=== PATIENT | female | born 1960 | race Two or more races ===

== ENCOUNTER 2024-03-07 05:51 | Inpatient (IN) | payer OTHER, SELFPAY ==
[2024-02-20 06:58] VITALS: BMI 41.4
[2024-02-20 09:00] LABS: Hematocrit 39.2 % (37.0-47.0); Hemoglobin 13.3 g/dL (12.0-16.0); Mean Corp Hgb Conc. 33.9 g/dL (33.0-37.0); Mean Corpuscular Hgb 29.1 pg (27.0-31.0); Mean Corpuscular Volume 85.8 fL (81.0-99.0); Mean Platelet Volume 11.1 fL (7.4-10.4); Platelet Count 222 10^3/uL (130-400); Red Blood Cell Count 4.57 10^6/uL (4.20-5.40); Red Cell Dist. Width 13.3 % (11.5-14.5); White Blood Cell Count 8.3 10^3/uL (4.8-10.8)
[2024-02-20 09:05] LABS: INR 0.96; PT 12.8 Sec (11.4-14.6)
[2024-02-20 09:06] LABS: APTT 32.4 Sec (23.4-35.0)
[2024-02-20 09:36] LABS: Glycohemoglobin (HgbA1c) 5.6 % (4.0-5.6)
[2024-02-20 10:56] LABS: ALT (SGPT) 29 U/L (0-35); AST (SGOT) 26 U/L (14-36); Alkaline Phosphatase 78 U/L (38-126); Blood Urea Nitrogen 17 mg/dl (7-17); Calcium 9.1 mg/dl (8.4-10.2); Carbon Dioxide 27 mmol/L (22-30); Chloride 104 mmol/L (98-107); Estimated Creatinine Clearance 83 ml/min; Glucose 88 mg/dl (70-99); Potassium 4.3 mmol/L (3.5-5.1); Sodium 140 mmol/L (135-145); Total Bilirubin 0.4 mg/dl (0.2-1.3); Total Protein 7.1 g/dl (6.3-8.2); eGFR > 60.00
[2024-03-07] VITALS (13 sets, daily range): BP systolic 105–139; BP diastolic 51–84; BMI 41.4
[2024-03-07] MEDS: ENTEREG 12 MG PO (06:43)
[2024-03-07] MEDS: CELEBREX 200 MG PO (06:43)
[2024-03-07] MEDS: TYLENOL 1000 MG PO ×2 (06:44→23:08)
[2024-03-07] MEDS: NORMOSOL-R 1000 IV ×2 (06:44→15:49)
[2024-03-07] MEDS: LYRICA 150 MG PO (06:44)
[2024-03-07] MEDS: HEPARIN 5000 UNITS SC (06:44)
[2024-03-07] MEDS: TRANSDERM-SCOP 1 PATCH TRANSDERM (07:03)
--- NOTE | 2024-03-07 14:10 | W.IMMPOSTOP ---
Addendum entered and electronically signed by Michael Salmeron MD 03/07/24 14:40:
Update patient's daughter over the phone
Original Note:
Surgical Immed Post Op Note
-
Primary Surgeon: Michael Salmeron MD
Assisting Surgeon: CATHY Dawkins
Pre-op Diagnosis: recurrent diverticulitis
Post-op Diagnosis: recurrent diverticulitis
Procedure Performed: robotic sigmoidectomy, lysis of adhesions (>1.5hrs), mesenteric angiography, take-down of splenic flexure, flex sig, repair of small bowel injury; TAP block performed at beginning of case by anesthesia
Anesthesia Type: general
Specimen / Cultures: sigmoid
Estimated Blood Loss: 200mL
IVF: 2.8L crystalloid
UOP: 850mL
Complications: bowel injury about 8cm from ileocecal valve, repaired primarily
Operative Findings: Abdominal access via Veress; placed for ports with an assist port and created Pfannenstiel incision with the small Arnold and port cap; omental adhesions to the umbilicus taken down sharply; sigmoid was inflamed chronically and
had adhesions to the LLQ, left pelvic brim, left ovary and fallopian tube and uterus, all taken down with a combination of blunt and sharp dissection; initiated medial to lateral dissection and obtained access to the presacral plane; however,
mesentery was very thick with adiposity and therefore continued with lateral to medial; left ureter was identified and protected; while attempting to take a couple of adhesions from the terminal ileum down from the right pelvic brim, a burn injury
was created on the terminal ileum, about 8 cm proximal from the IC valve; the injury was about 1 cm x 1 cm in size; repaired this primarily with 4 interrupted Lembert sutures to imbricate the area in a transverse orientation; there was some bleeding
from a branch of the CHANDA that was controlled with a 3-0 vicryl stitch in figure-of-8 fashion; upsized to the RLQ port and ligated the CHANDA with a white load stapler due to the thickness of the pedicle; then continued to mobilize the descending colon
up to the level of the splenic flexure medially and laterally; then mobilized the proximal rectum and passed sizers to identify the transection point; cleaned up the mesentery posteriorly and stapled the proximal rectum at about 13 cm from the anal
verge using a green load stapler; evaluated the proximal colon and selected a location on healthy colon at the distal descending; divided the mesentery up to this point; concerns at this point was well-perfused using ICG; placed the anvil in usual
fashion; checked reach which was not sufficient; therefore mobilized the splenic flexure to the very distal transverse colon; reach was adequate and performed an EEA stapled anastomosis; hemostasis was checked and assured; the left ureter was also
safe and uninjured; there was no bleeding from the CHANDA stump; the donuts were intact x 2, leak test negative and flex sig confirmed anastomosis without issue; closed the RLQ port site with a Remington Dominguez and 0 Vicryl; closed the Pfannenstiel and
skin incisions the usual fashion
--- NOTE | 2024-03-07 14:41 | OR.RPT ---
Operative Report
Operative Report
DATE OF OPERATION: 03/07/2024
SURGEON: Michael Salmeron MD
PREOPERATIVE DIAGNOSIS: Recurrent diverticulitis
POSTOPERATIVE DIAGNOSIS: Recurrent diverticulitis
OPERATION: Robotic sigmoidectomy, adhesiolysis greater than 1.5 hr, repair of small bowel injury, mesenteric angiography with ICG, take-down of the splenic flexure, flexible sigmoidoscopy; TAP block performed by anesthesia at beginning of case
ASSISTANTS:
1. CATHY Dawkins
ANESTHESIA: General
ESTIMATED BLOOD LOSS: 200 mL
IVF: 2.8 L
URINE OUTPUT: 850 mL
FINDINGS:
1. Multiple intra-abdominal adhesions: from the omentum to the umbilicus; from the sigmoid to the LLQ, left pelvic brim, left ovary and uterus; from the terminal ileum to the right pelvic brim; all taken down with a combination of sharp and blunt
dissection
2. Chronically inflamed and edematous sigmoid colon
3. During adhesiolysis of the terminal ileum, there was a burn injury to the bowel about 8 cm proximal to the ileocecal valve, 1 cm x 1 cm in size; imbricated the area with four 3-0 Vicryl's in a Lembert fashion oriented transversely
4. Performed distal descending to proximal rectum intracorporeal stapled EEA anastomosis; donuts intact x 2, leak test negative, anastomosis intact on flexible sigmoidoscopy
SPECIMENS:
1. Sigmoid colon
DRAINS: None
COMPLICATIONS: Small bowel injury repaired primarily
INDICATIONS: The patient is a 63-year-old female who has had recurrent diverticulitis since 2018. Over the last year, she has been having a recurrent episode about once every 2 to 3 months. Therefore, I recommended surgery. The operation was
discussed with the patient in detail, including the risks, benefits and alternatives. Risks described included, but not limited to, bleeding, infection, anastomotic leak, damage to nearby structures (i.e.- ureter, bowel, solid organs), incisional
hernia, need for ostomy creation, conversion to open, recurrent diverticulitis and anesthetic risks. The patient understood and agreed to proceed.
PROCEDURE IN DETAIL: The patient was taken to the operating room and placed on the operating table in supine position. Sequential compression devices were placed bilaterally. General anesthesia was then induced and the patient was intubated without
complication. The patient was then placed in lithotomy position with both arms tucked. Joaquin catheter was placed with sterile technique. The abdomen was then shaved, prepped and draped in a sterile fashion. A time-out was then performed verifying
the correct patient, procedure, operative site, positioning, and special equipment. Preoperative antibiotics were given. A marking pen was used to tram out the midline.
An 8 mm incision at Richardson's point was made with an 11 blade scalpel. A Veress needle was used to gain abdominal access. After 3 clicks, the insufflation was connected to the Veress needle and the opening pressure was noted to be less than 8 mmHg.
The abdomen was then insufflated to a pressure of 12 mmHg. An 8 mm robotic trocar was then inserted. The robotic camera was advanced and intra-abdominal placement was confirmed. The abdomen was examined. No injuries were noted from port entry or
from the Veress needle. The omentum was adherent to the periumbilical region. The sigmoid was unable to be visualized at this point due to the intervening small bowel. The remaining three 8mm robotic ports were placed under direct visualization
in a diagonal fashion from Richardson's point to the right lower quadrant, as well as an 8mm assist port in the right lateral mid abdomen, taking care to avoid injury to the right epigastric vessels. The left upper quadrant port was changed to the air
seal port.
A 6 cm Pfannenstiel incision was created 2 fingerbreadths above the pubic symphysis. This was carried down to the anterior fascia with electrocautery and hemostasis was assured. The fascia was then incised to just beyond the length of the skin
incision. The fascia was grasped with Casper's and elevated. The adhesions to the anterior fascia were taken down bluntly from the rectus abdominis muscle and the midline attachment was taken down with electrocautery. This was performed both
superiorly and inferiorly to our incision. The rectus was then split along the midline, first scoring the linea alba with electrocautery, then bluntly spitting with a Sandee clamp to reveal the peritoneum, which was grasped and elevated with Kellys.
The peritoneum was then incised with Metzenbaum scissors, taking care to avoid injury to intraperitoneal structures. The peritoneum was then incised cranially and caudally to the greatest extent that our incision would allow, taking care to avoid
injury to the bladder. A small Arnold with port cap was placed and a robotic 12 mm port was placed through the port cap. Then, the patient was placed in 24 degrees trendelenburg and 10 degrees [id number]. The robot was docked from the
patient's right side. From the RLQ to Richardson's point, the instruments introduced were the scissors, camera, bipolar grasper and tip-up grasper, respectively.
I began by taking down the adhesions to the periumbilical region. I retracted the omentum inferiorly and meticulously divided the adhesions to the abdominal wall with sharp and blunt dissection. Once the omentum was down, I checked for hemostasis
which was confirmed. I then swept the omentum over the transverse colon. The small bowel was retracted out of the pelvis and towards the right upper quadrant. The sigmoid colon was thickened surrounded by chronically inflamed epiploica. Numerous
adhesions were noted from the sigmoid colon to the left pelvic sidewall, the left ovary and the uterus, which were taken down with sharp and blunt dissection. The sigmoid was then grasped and elevated to commence a medial to lateral dissection.
However, due to the adiposity in the retroperitoneum and mesocolon, the correct plane was difficult to identify. There was significant adiposity heaped up around the sacral promontory and likely CHANDA pedicle. The peritoneum overlying the sacral
promontory was scored and entered. I was able to enter the presacral space, but taking this towards the CHANDA pedicle was difficult as the tissue was friable with significant oozing. The small bowel was also hindering visualization. Therefore, I
placed the patient in 28 degrees Trendelenburg and 14 degrees [id number]. There was 1 attachment from the terminal ileum to the right pelvic brim which I took down with the vessel sealer. There was some bleeding noted from a small portion of
the mesentery adjacent to the terminal ileum. This was controlled with electrocautery. However, while attempting to control this, the bowel was burned with electrocautery from the bipolar grasper. The duration of the burn was about 1 to 2
seconds. On evaluation of the burn, it was about 1 cm x 1 cm in size and located about 8 cm proximal to the ileocecal valve. It was superficial, however, there was clear evidence of an injury due to the white color of the tram. I discussed with
my senior officer, Dr. Sarkar, and we both agreed that a primary repair would be sufficient in this situation versus a formal ileocecectomy. Therefore, I imbricated the injury using four 3-0 Vicryl's thrown in a Lembert fashion and oriented
transversely along the bowel. The injury was completely imbricated and the surrounding bowel remained healthy without evidence of ischemia.
I returned my attention back to the dissection of the CHANDA pedicle. Due to the difficulty completing a medial to lateral mobilization, I switched to a lateral to medial approach. I freed the sigmoid mesentery from the left pelvic brim and easily
identified the left ureter, which was kept safe from my dissection. I was able to connect to my previous dissection posterior to the rectosigmoid. I then continued a lateral to medial mobilization up to the level of the distal descending colon. I
changed back to a medial to lateral approach to further dissect out the CHANDA pedicle. Some arterial bleeding was noted from a branch of the CHANDA pedicle and this was controlled with a 3-0 Vicryl stitch in a [id number] fashion. I successfully
mobilized the CHANDA pedicle circumferentially. I upsized the RLQ port to a 12 mm. Due to the thickness of the CHANDA pedicle, I divided it about 2-3 cm from its takeoff using the white load of the 60 mm stapler. The CHANDA stump was hemostatic. I
mobilized more of the mesocolon off the retroperitoneum from a medial to lateral approach up to the proximal descending colon and took down the lateral attachments.
I turned back to the pelvis and continued the dissection inferiorly, posteriorly to the rectum in the presacral plane, and took this to just beyond the sacral promontory. I used the vessel sealer to connect the posterior dissection to the right
lateral dissection in order to further mobilize the rectosigmoid junction. I retracted the rectosigmoid junction to the patient's right, and then scored the left lateral peritoneum and used the vessel sealer to divide the lateral stalk to the same
point as my right lateral dissection. Once the rectosigmoid seemed adequately mobilized, I went below and performed a flexible sigmoidoscopy to confirm the transection point. The rectum was clear of stool and I advanced the sigmoidoscope to the
rectosigmoid junction, confirmed visually with the robotic endoscope. I then selected a point about 2 to 3 cm distal to the rectosigmoid. I passed EEA sizers up in increasing size to confirm adequate diameter of the rectum. The largest sizer
passed easily. I went back to the robotic console. I retracted the rectosigmoid anteriorly again, and then created a tunnel through the mesorectum at my proposed transection point on the rectum. I then divided the mesorectum with the
vessel-sealer. I stapled across the proximal rectum with a 60 mm green load stapler, taking care to avoid injury to the surrounding structures, including the left ureter. The staple line was hemostatic.
For my proximal transection point, I assessed the sigmoid and distal descending colon. There was inflammation and thickening of the colon wall up to the level of the proximal sigmoid colon. I selected a point just proximal to this area on healthy
colon. I elevated the colon at this point with my tip up grasper. I fanned out the mesentery from the divided CHANDA stump. I ligated the mesentery from this spot to my transection point on the the distal descending colon. I elected to proceed with an
intracorporeal end-to-end stapled anastomosis with EEA stapler. Anesthesia injected ICG and my proposed proximal transection point was well-vascularized. A colotomy in the devascularized segment of colon was created using the robotic scissors at a
point distal to our proposed proximal transection point. The anvil with a long Prolene suture attached at the tip was then carefully passed through the colotomy and advanced proximally up the descending colon, with the long Prolene remaining
outside of the colon. The colotomy was then closed around the Prolene stitch using a V-Loc running stitch. The robotic stapler with a blue load was then used to staple and divide the descending colon at our proposed transection point. The
specimen was then placed in the left upper quadrant. The Prolene attached to the anvil was grasped and pulled through the staple line after removing a few pily. I grasped and elevated the anvil and it was seated along the staple line nicely
without intervening diverticula or mesentery.
I checked the reach of the proposed anastomosis once more and it was inadequate by 3 to 4 cm. Therefore, I elected to mobilize the splenic flexure to the distal transverse colon. I grasped the left colon and retracted this towards the RUQ. Using
the vessel sealer, I divided the omental attachments to the left colon and splenic flexure. I then took down the ligaments from the colon to the spleen. Once the splenic flexure was mobilized to the distal transverse colon, I checked my reach
again and it was adequate. The entire operative field was surveyed and hemostasis was ensured. Then, sizers were passed up the rectum to ensure adequate circumference and length. The EEA stapler was passed transanally to the distal staple line.
The pin was extended and was connected with the anvil. After ensuring there was no twist to the mesentery and there was no tension, the EEA stapler was then closed for 1 minute and then fired. Both donuts were intact. A leak test was performed by
filling the pelvis with saline, occluding the proximal lumen and insufflating with the flexible sigmoidoscope. There was no evidence of leak from the anastomosis. Endoscopically, the anastomosis was intact without evidence of bleeding. The
colorectum was desufflated and the flexible sigmoidoscope removed.
The robotic instruments were removed and the robot was undocked. The right lower quadrant 12mm port was closed with a Remington-Dominguez and an 0-vicryl. The remaining ports were removed under direct visualization and no bleeding was noted. The
Pfannenstiel incision was then closed in layers. First, the peritoneum was closed with a running 0-Vicryl stitch. Then, the anterior fascia was closed using a #1 Stratafix suture. The incisions were then irrigated. 30 cc of 0.25% Marcaine with
epinephrine mixed with dexamethasone were injected around the incisions. The incisions were then closed with running subcuticular 4-0 Monocryl and dressed with Dermabond.
At this point, the procedure was complete. The patient was awoken and extubated without complication. All needle, sponge and instrument counts were reported as correct. The patient tolerated the procedure well and was transferred to the recovery
room in stable condition with the Joaquin in place.
DICTATED BY: Michael Salmeron MD
[2024-03-07] MEDS: TORADOL 15 MG IV ×2 (15:51→21:30)
--- NOTE | 2024-03-07 17:11 | PTCARENOTE ---
Patient admitted from [facility] post robotic sigmoid resection secondary to diverticulitis.The patient is alert but drowsy.She said she has pain only when she moves at a 4 out of 10.All 6 laparoscopic sites are open to air without drainage.The patient is
in her bed with the call shine in reach.
[2024-03-07] MEDS: TYLENOL PO (18:02)
[2024-03-08] MEDS: TORADOL 15 MG IV ×4 (03:08→21:29)
[2024-03-08] MEDS: NORMOSOL-R 1000 IV (03:14)
[2024-03-08 03:45] VITALS: BP 111/65
[2024-03-08 05:23] VITALS: BMI 41.2
[2024-03-08] MEDS: TYLENOL PO ×2 (05:32→23:46)
[2024-03-08 07:40] VITALS: BP 108/64
[2024-03-08] MEDS: SPIRIVA RESPIMAT 2.5 MCG 2 PUFF INH (07:48)
[2024-03-08] MEDS: SYMBICORT 80/4.5 MCG INHALER 2 PUFF INH ×2 (07:48→18:34)
[2024-03-08 07:50] LABS: % Basophils 0.2 % (0-2); % Eosinophils 0.2 % (0-6); % Immature Granulocytes 0.4 % (0-0.5); % Lymphocytes 12.5 % (20.5-51.1); % Neutrophils 79.7 % (42.2-75.2); Absolute Immature Granulocytes 0.1 10^3/uL (0-0.05); Absolute Lymphocytes 1.7 10^3/uL (1.2-3.4); Hematocrit 31.7 % (37.0-47.0); Hemoglobin 11.1 g/dL (12.0-16.0); Mean Corpuscular Volume 82.8 fL (81.0-99.0); Nucleated Red Blood Cells % 0.3 %; Red Blood Cell Count 3.83 10^6/uL (4.20-5.40); Red Cell Dist. Width 13.4 % (11.5-14.5); White Blood Cell Count 13.8 10^3/uL (4.8-10.8)
[2024-03-08 08:08] LABS: Blood Urea Nitrogen 10 mg/dl (7-17); Calcium 8.2 mg/dl (8.4-10.2); Carbon Dioxide 22 mmol/L (22-30); Chloride 109 mmol/L (98-107); Estimated Creatinine Clearance 106 ml/min; Glucose 112 mg/dl (70-99); Magnesium 2.8 mg/dl (1.6-2.3); Potassium 4.5 mmol/L (3.5-5.1); Sodium 139 mmol/L (135-145); eGFR > 60.00
[2024-03-08] MEDS: ENTEREG 12 MG PO ×2 (08:23→19:51)
[2024-03-08] MEDS: PROTONIX 40 MG PO (08:23)
[2024-03-08 09:26] LABS: Mean Platelet Volume 11.5 fL (7.4-10.4); Platelet Count 173 10^3/uL (130-400)
--- NOTE | 2024-03-08 10:45 | W.PN.CRS1 ---
Today's Communication / Plan
-
Regular diet, go slow
DC Joaquin
Repeat CBC at 4 PM
Ambulate twice daily and OOBTC
Assessment/Plan
-
63-year-old female with PMH of recurrent diverticulitis, asthma, constipation, HTN, GERD, HLD who presented for elective surgery
POD 1 robotic sigmoidectomy, MAVIS, small bowel injury repair primarily, tap block
WBC 13.8, Hb 11.1 from 13.3, CR 0.7
� Okay to advance to regular diet, instructed patient to go slow
� Continue pain control with Tylenol, Toradol, lidocaine patch, Dilaudid as needed; continue Entereg
� Anemia likely due to dilutional and intraoperative blood loss
-hold Lovenox, repeat CBC in afternoon
�If Hb stable, okay to start Lovenox
� DC Joaquin, monitor for void
� Ambulate twice daily and OOBTC, encourage IS
�Continue home medications
Subjective Data
Subjective Data
Date of Service: March 08, 2024
No overnight events.
Pain controlled.
Denies nausea/vomiting. Tolerating clears.
-flatus -BMs + Joaquin
Pt is not OOB yet.
Objective Data
-
Vital Signs
Temp Pulse Resp BP Pulse Ox
98.6 F 87 15 108/64 97
03/08/24 07:40 03/08/24 07:54 03/08/24 07:54 03/08/24 07:40 03/08/24 07:54
Intake & Output
03/07/24 03/08/24 03/09/24
06:59 06:59 06:59
Intake Total 1880 / 1880
Output Total 2250 / 2250
Balance -370 / -370
Intake:
Oral fluids 480 / 480
IV fluids (Total) 1400 / 1400
Normosol 200 / 200
IV piggybacks 0 / 0
Output:
Urine, Joaquin 2250 / 2250
Lab Results
03/08/24 07:17
03/08/24 07:17
Physical Exam
-
General: No Acute Distress and AOx3
HEENT: Grossly Normal
Abdomen: Soft, Non Distended (Protuberant but not tympanitic), Non Tender, No Guarding and No Rebound
Skin: Warm and Dry
Incision: Clear, Dry, Intact, No Skin Erythema and Other (No drainage)
[2024-03-08] MEDS: TYLENOL 1000 MG PO ×2 (11:17→17:01)
[2024-03-08 11:20] VITALS: BP 119/52
--- NOTE | 2024-03-08 12:32 | CM ---
Initial assessment completed with patient with sister and B-I-L in room. Patient lives alone in a 2nd floor condo with loft, 4 steps into the building and 12 steps to the 2nd floor condo. Daughter lives on 1st floor, DME is [facility], no in-home
services, [employer] was independent, drove and worked, no psychiatric hospitalizations. Pharmacy is [facility] in [place] and PCP is Dr. Rosalva Cui. Anticipate home with no needs.
--- NOTE | 2024-03-08 13:24 | PTCARENOTE ---
1320: Patient informed RN that she missed urinating in the hat that was placed in the toilet to measure how much she was urinating post wan removal today and patient flushed the toilet prior to any of the staff members being able to see the amount
of urine. Patient stated that 'it was a moderate amount of urine'. This RN informed Jennifer LEES. No new orders at this time. Care ongoing.
[2024-03-08 14:55] VITALS: BP 120/55; PULSE 83; O2SAT 98
[2024-03-08 15:17] LABS: Hematocrit 29.3 % (37.0-47.0); Hemoglobin 10.1 g/dL (12.0-16.0); Mean Corp Hgb Conc. 34.5 g/dL (33.0-37.0); Mean Corpuscular Volume 86.9 fL (81.0-99.0); Mean Platelet Volume 10.5 fL (7.4-10.4); Platelet Count 205 10^3/uL (130-400); Red Blood Cell Count 3.37 10^6/uL (4.20-5.40); Red Cell Dist. Width 13.3 % (11.5-14.5); White Blood Cell Count 13.4 10^3/uL (4.8-10.8)
[2024-03-08 15:25] VITALS: BP 115/67
[2024-03-08 23:14] VITALS: BP 110/64
[2024-03-09] MEDS: TORADOL 15 MG IV (02:55)
[2024-03-09 06:00] VITALS: BMI 41.8
[2024-03-09] MEDS: TYLENOL PO (06:22)
[2024-03-09 07:00] VITALS: BP 108/57
[2024-03-09] MEDS: SPIRIVA RESPIMAT 2.5 MCG 2 PUFF INH (07:26)
[2024-03-09] MEDS: SYMBICORT 80/4.5 MCG INHALER 2 PUFF INH (07:26)
[2024-03-09] MEDS: PROTONIX 40 MG PO (08:20)
[2024-03-09] MEDS: ENTEREG PO (08:21)
[2024-03-09] MEDS: TYLENOL 1000 MG PO (08:24)
[2024-03-09] MEDS: TORADOL IV (08:24)
[2024-03-09 08:40] LABS: Hematocrit 31.1 % (37.0-47.0); Hemoglobin 10.1 g/dL (12.0-16.0); Mean Corp Hgb Conc. 32.5 g/dL (33.0-37.0); Mean Corpuscular Hgb 28.7 pg (27.0-31.0); Mean Corpuscular Volume 88.4 fL (81.0-99.0); Mean Platelet Volume 10.4 fL (7.4-10.4); Platelet Count 176 10^3/uL (130-400); Red Blood Cell Count 3.52 10^6/uL (4.20-5.40); Red Cell Dist. Width 13.5 % (11.5-14.5); White Blood Cell Count 10.5 10^3/uL (4.8-10.8)
[2024-03-09 09:03] LABS: Blood Urea Nitrogen 14 mg/dl (7-17); Calcium 8.3 mg/dl (8.4-10.2); Carbon Dioxide 29 mmol/L (22-30); Chloride 105 mmol/L (98-107); Estimated Creatinine Clearance 83 ml/min; Glucose 102 mg/dl (70-99); Sodium 140 mmol/L (135-145); eGFR > 60.00
--- NOTE | 2024-03-09 12:36 | W.PN.CRS1 ---
Today's Communication / Plan
-
DC this afternoon if no issues
Assessment/Plan
-
63-year-old female with PMH of recurrent diverticulitis, asthma, constipation, HTN, GERD, HLD who presented for elective surgery
POD 2 robotic sigmoidectomy, MAVIS, small bowel injury repair primarily, tap block
WBC 10.5 from 13.8, Hb 10.1 from 10.1, CR 0.9
�Continue regular diet
� Continue pain control with Tylenol, Toradol, lidocaine patch, Dilaudid as needed; continue Entereg
� Anemia likely due to dilutional and intraoperative blood loss; stable/not clinically significant
-Okay for DVT PPx with Lovenox
�Voiding
� Ambulate twice daily and OOBTC, encourage IS
�Continue home medications
Dispo�okay for DC this afternoon if no issues
Subjective Data
Subjective Data
Date of Service: March 09, 2024
No overnight events.
Pain controlled.
Denies nausea/vomiting. Tolerating regular diet.
+flatus +BMs (some dark red material, but decreasing in amount) +voiding
Pt is OOB.
Objective Data
-
Vital Signs
Temp Pulse Resp BP Pulse Ox
97.9 F 72 18 108/57 96
03/09/24 07:00 03/09/24 07:29 03/09/24 07:29 03/09/24 07:00 03/09/24 08:00
Intake & Output
03/08/24 03/09/24 03/10/24
06:59 06:59 06:59
Intake Total 1880 / 1880 1040 / 1040
Output Total 2250 / 2250
Balance -370 / -370 1040 / 1040
Intake:
Oral fluids 480 / 480 1040 / 1040
IV fluids (Total) 1400 / 1400
Normosol 200 / 200
IV piggybacks 0 / 0
Output:
Urine, Joaquin 2250 / 2250
Other:
Number of approximated MODERATE 2
amounts of urine
Lab Results
03/09/24 08:15
03/09/24 08:15
Physical Exam
-
General: No Acute Distress and AOx3
HEENT: Grossly Normal
Abdomen: Soft, Non Distended, Tender (Appropriately tender near incisions), No Guarding and No Rebound
Skin: Warm and Dry
--- NOTE | 2024-03-09 14:13 | CM ---
Patient has been medically cleared for discharge to home with no additional skilled services. Patient has arranged for transport home.
--- NOTE | 2024-03-09 15:23 | W.DCSUMMARY ---
Discharge Summary
Discharge Data
Date of Admission: 03/07/24
Date of Discharge: 03/09/24
-
Pending Results: No
Hospital Course
Ms Link is a 63 yo female who presented for elective surgical management of recurrent diverticulitis with robotic sigmoidectomy, lysis of adhesions and repair of small bowel injury preformed. She tolerated the procedure will with minimal post
operative pain. Diet was able to be advanced and well tolerated post operatively with good bowel recovery. She was discharged to home with outpatient follow up planned in the coming weeks.
Discharge Plan
-
Patient Disposition: Home (Routine Discharge)
Discharge Diagnosis/Procedures: Robotic sigmoidectomy with lysis of adhesions
Condition: Good
Diet: Low Fiber
Activity: No strenuous activity
Additional Activity: do not lift over 10 lbs (gallon of milk) for the next 4-6 weeks
Driving Restrictions: Ok to drive once comfortable twisting/off narcotic
Bathing Restrictions: OK to Shower
Wound Care: Ok to shower and wash your incisions gently with soap and water. The glue over your incisions will flake off on its own in 2-3 weeks. Avoid scrubbing or picking the glue off.
Activity Restrictions/Additional Instructions:
Call your surgeon if you have a fever >100.5, nausea with vomiting or worsening abdominal pain
Referrals:
Rosalva Cui MD [Family Provider] -
Michael Salmeron MD [Active] - in two to three weeks
Prescriptions:
New
acetaminophen [Acetaminophen Extra Strength] 500 mg tablet
1,000 mg PO Q6H PRN (Reason: Pain) Qty: 1 0RF
Rx Instructions:
Max dosage of 4gm per 24hours
ibuprofen 200 mg tablet
400 - 600 mg PO Q6HPRN PRN (Reason: moderate pain) Qty: 1 0RF
tramadol 50 mg tablet
25 - 50 mg PO Q6HPRN PRN (Reason: severe pain/breakthrough pain) Qty: 10 0RF
Continued
losartan 50 mg Tablet
50 mg PO DAILY
omeprazole 20 mg Capsule,Delayed Release(Dr/Ec)
20 mg PO DAILY
fluticasone propionate 50 mcg/actuation [place],Suspension
1 spray INTRANASAL DAILY
cholecalciferol (vitamin D3) [Vitamin D3] 125 mcg (5,000 unit) Tablet
125 mcg PO DAILY
coQ10 (ubiquinol) 100 mg Capsule
100 mg PO DAILY
fluticasone furoate-vilanterol [Breo Ellipta] 100-25 mcg/dose Blister With Device
1 inh INHALATION DAILY
Nucala 100 mg/mL Auto-Injector
100 mg SC Q4W
Fish Oil (with DHA-EPA)
2 cap PO DAILY
d-mannose
400 mg PO BID
Discontinued
metronidazole 500 mg Tablet
500 mg PO .PERPROTOCOL
Patient Comments:
took at 1400,1600, and 2200 on 03/07/24
neomycin 500 mg Tablet
500 mg PO .PERPROTOCOL
Patient Comments:
took at 1400,1600, and 2200 on 03/07/24
Sutab 1.479-0.188- 0.225 gram Tablet
0 tab PO PER PKG DIR
Discharge Orders:
Discharge Patient (As Directed); Ordered 03/09/24
Ordered By: Jennifer Rosales
Discharge Date and Time
Discharge Date/Time: 03/09/24 14:46
Print Language: [place]NADI[place]
== END 2024-03-09 14:46 | disposition home or self-care (01) | DRG 330 ==
LOC: 2 SOUTH 05:51
PROVIDERS: Registered Nurse; ADMITTING PHYSICIAN Surgery; FAMILY PHYSICIAN Family Medicine
PROC: 0UN14ZZ Release Left Ovary, Percutaneous Endoscopic Approach (ICD-10-PCS; 2024-03-07)
PROC: 3E0T3BZ Introduction of Anesthetic Agent into Peripheral Nerves and Plexi, Percutaneous Approach (ICD-10-PCS; 2024-03-07)
PROC: 0DU Gastrointestinal System, Supplement (ICD-10-PCS; 2024-03-07)
PROC: 3E0T33Z Introduction of Anti-inflammatory into Peripheral Nerves and Plexi, Percutaneous Approach (ICD-10-PCS; 2024-03-07)
PROC: 0DNB4ZZ Release Ileum, Percutaneous Endoscopic Approach (ICD-10-PCS; 2024-03-07)
PROC: 0DNU4ZZ Release Omentum, Percutaneous Endoscopic Approach (ICD-10-PCS; 2024-03-07)
PROC: 0DNN4ZZ Release Sigmoid Colon, Percutaneous Endoscopic Approach (ICD-10-PCS; 2024-03-07)
PROC: 0UN94ZZ Release Uterus, Percutaneous Endoscopic Approach (ICD-10-PCS; 2024-03-07)
PROC: 0DTN4ZZ Resection of Sigmoid Colon, Percutaneous Endoscopic Approach (ICD-10-PCS; 2024-03-07)
PROC: 8E0W4CZ Robotic Assisted Procedure of Trunk Region, Percutaneous Endoscopic Approach (ICD-10-PCS; 2024-03-07)
PROC: 0DJD8ZZ Inspection of Lower Intestinal Tract, Via Natural or Artificial Opening Endoscopic (ICD-10-PCS; 2024-03-07)
DX: K57.92 Diverticulitis of intestine, part unspecified, without perforation or abscess without bleeding (principal); K91.81 Other intraoperative complications of digestive system; T28.2XXA Burn of other parts of alimentary tract, initial encounter; N73.6 Female pelvic peritoneal adhesions (postinfective); K66.0 Peritoneal adhesions (postprocedural) (postinfection); Y65.8 Other specified misadventures during surgical and medical care; Y92.234 Operating room of hospital as the place of occurrence of the external cause; Y73.3 Surgical instruments, materials and gastroenterology and urology devices (including sutures) associated with adverse incidents; Y93.9 Activity, unspecified
CPT/HCPCS: 88307; 36415; 71046; 80048; 80053; 83036; 83735; 85025; 85027; 85610; 85730; 86850; 86900; 86901; 93005; 94640; 97161